=== PATIENT | male | born 1970 | race Caucasian/White ===

== ENCOUNTER 2020-06-25 07:15 | Inpatient (IN) | payer BC ==
[2020-06-26] MEDS ORDERED: cefOXitin 2 GM Vial ONE (06:45)
[2020-06-26] MEDS ORDERED: fentaNYL 250 MCG/5 ML SDV ONE ×2 (07:00→12:21)
[2020-06-26] MEDS ORDERED: Neostigmine Methylsulfate 1 MG/ML 5 ML Syringe ONE (07:01)
[2020-06-26] MEDS ORDERED: Succinylcholine 200 MG/10 ML MDV ONE (07:01)
[2020-06-26] MEDS ORDERED: Glycopyrrolate 0.2 MG/ML 5 ML MDV ONE (07:01)
[2020-06-26] MEDS ORDERED: Dexamethasone 4 MG/ML SDV ONE (07:01)
[2020-06-26] MEDS ORDERED: Rocuronium 50 MG/5 ML Vial ONE (07:01)
[2020-06-26] MEDS ORDERED: Ondansetron 4 MG/2 ML SDV ONE (07:01)
[2020-06-26] MEDS ORDERED: Propofol 200 MG/20 ML SDV ONE (07:01)
[2020-06-26] MEDS ORDERED: Lactated Ringers 1,000 ML ONE (07:03)
[2020-06-26] MEDS ORDERED: Scopolamine 1.5 MG Transdermal Patch TOP ONE (07:45)
[2020-06-26] MEDS ORDERED: Acetaminophen 500 MG Tab PO ONE (07:45)
[2020-06-26] MEDS ORDERED: Celecoxib 200 MG Cap PO ONE (07:45)
[2020-06-26] MEDS ORDERED: Dextrose 5%-Lactated Ringers 1,000 ML IV SCH ×2 (08:00→13:45)
[2020-06-26 08:03] LABS: HEMOGLOBIN A1C 6.3 % (4.5-6.2)
[2020-06-26] MEDS ORDERED: Ketamine 500 MG/5 ML MDV IV SCH (09:15)
[2020-06-26] MEDS ORDERED: Ketamine 50 MG in Sodium Chloride 0.9% 49.5 ML IV SCH (09:15)
[2020-06-26] MEDS ORDERED: cefOXitin 2 GM in Sodium Chloride 0.9% 50 ML IV ONE (09:30)
[2020-06-26] MEDS ORDERED: Magnesium Sulfate 7 GM in Sodium Chloride 0.9% 250 ML IV ONE (09:45)
[2020-06-26] MEDS ORDERED: hydrOXYzine HCL 100 MG/2 ML SDV IM ONE ×2 (13:19→13:41)
[2020-06-26] MEDS ORDERED: Cyclobenzaprine 10 MG Tab PO PRN (13:45)
[2020-06-26] MEDS ORDERED: fentaNYL 100 MCG/2 ML SDV IVPUSH ONE (13:46)
[2020-06-26] MEDS ORDERED: hydrOXYzine HCL 100 MG/2 ML SDV IM PRN (14:00)
[2020-06-26] MEDS ORDERED: Calcium Gluconate 10% 1 GM/10 ML SDV IVPUSH PRN (14:00)
[2020-06-26] MEDS ORDERED: diphenhydrAMINE 50 MG/ML SDV IVPUSH PRN (14:00)
[2020-06-26] MEDS ORDERED: Metoclopramide 10 MG/2 ML SDV IVPUSH PRN (14:00)
[2020-06-26] MEDS ORDERED: oxyCODONE 5 MG Tab PO PRN (14:00)
[2020-06-26] MEDS ORDERED: Glucagon,Human Recombinant 1 MG Vial IM PRN (14:00)
[2020-06-26] MEDS ORDERED: Labetalol 20 MG/4 ML Syringe IVPUSH PRN (14:00)
[2020-06-26] MEDS ORDERED: Insulin Lispro 100 Unit/ML 3 ML KwikPen SUBCUT PRN (14:00)
[2020-06-26] MEDS ORDERED: 50% Dextrose in Water 50 ML Syringe IVPUSH PRN (14:00)
[2020-06-26] MEDS ORDERED: Ondansetron 4 MG/2 ML SDV IVPUSH PRN (14:00)
[2020-06-26] MEDS ORDERED: HYDROmorphone 0.5 MG/0.5 ML Syringe IVPUSH PRN (14:00)
[2020-06-26] MEDS ORDERED: Acetaminophen 500 MG Tab PO PRN (14:00)
[2020-06-26] MEDS: Lactated Ringers 1,000 ML IV SCH (14:52)
[2020-06-26] MEDS: HYDROmorphone 1 MG/ML Syringe IV PRN ×2 (14:58→22:49)
[2020-06-26] MEDS: Allopurinol 100 MG Tab PO SCH (16:25)
[2020-06-26] MEDS ORDERED: Phenol/Sodium Phenolate Spray 180 ML Bottle MUCMEM PRN (16:44)
[2020-06-26] MEDS: Pantoprazole 40 MG Vial IVPUSH SCH (16:48)
[2020-06-26] MEDS: MVI, Adult with Vitamin K 10 ML, Thiamine 200 MG, Zinc/Copper/Manganese/Selenium 1 ML i... IV SCH ×4 (16:53)
[2020-06-26] MEDS: Acetaminophen 500 MG Tab PO SCH (16:57)
[2020-06-26] MEDS: cefOXitin 2 GM in Sodium Chloride 0.9% 50 ML IV SCH ×2 (16:58→22:37)
[2020-06-26] MEDS: DULoxetine 30 MG Cap PO SCH (20:19)
[2020-06-26] MEDS: Heparin Sodium 5,000 Units/ML Vial SUBCUT SCH (20:19)
[2020-06-27] MEDS: Acetaminophen 500 MG Tab PO SCH ×4 (00:14→23:16)
[2020-06-27] MEDS: cefOXitin 2 GM in Sodium Chloride 0.9% 50 ML IV SCH ×3 (04:33→16:11)
[2020-06-27] MEDS: Lactated Ringers 1,000 ML IV SCH (04:36)
[2020-06-27] MEDS: HYDROmorphone 1 MG/ML Syringe IV PRN (04:42)
[2020-06-27] MEDS ORDERED: Ondansetron 4 MG Tab.DIS PO PRN (07:22)
[2020-06-27] MEDS ORDERED: hydrOXYzine HCl 25 MG Tab PO PRN (07:23)
[2020-06-27] MEDS ORDERED: Lactated Ringers 1,000 ML IV SCH (07:30)
[2020-06-27] MEDS: SCOPOLAMINE PATCH CHECK TOP SCH (08:22)
[2020-06-27] MEDS: Heparin Sodium 5,000 Units/ML Vial SUBCUT SCH ×2 (08:22→20:08)
[2020-06-27] MEDS: DULoxetine 30 MG Cap PO SCH ×2 (08:22→20:09)
[2020-06-27] MEDS: Hydrochlorothiazide 12.5 MG Cap PO SCH (08:22)
[2020-06-27] MEDS: Celecoxib 200 MG Cap PO SCH ×2 (08:22→20:08)
[2020-06-27] MEDS: Lisinopril 10 MG Tab PO SCH (08:23)
[2020-06-27] MEDS: Allopurinol 100 MG Tab PO SCH (08:23)
--- NOTE | 2020-06-27 09:40 | PN ---
DATE OF SERVICE: 06/27/2020 SUBJECTIVE: Louis is postoperative day #1. He was unable to have an upper GI x-ray this morning due to anaphylactic allergy when he had an x-ray prior to this. Vital signs have been stable. He has been up ambulating. Step 1 gastric bypass diet. He had 1600 in and 2900 out of a clear yellow urine. MARQUISE drain put out 110 mL of a light red drainage. Vital signs stable. Pain is controlled. REVIEW OF SYSTEMS: Remainder of review of systems negative for any pertinent positives and negatives. OBJECTIVE: GENERAL: Louis Cha is a pleasant 50-year-old male. He is alert, orientated, lying in bed. VITAL SIGNS: TPR is 98.7, 68, 16, blood pressure 123/63. HEENT: Negative. NECK: Supple. HEART: Regular rate and rhythm. LUNGS: Clear. ABDOMEN: Dressings dry and intact. Abdominal binder is on. MARQUISE drain as above. EXTREMITIES: SCDs are on and there is no peripheral edema. ASSESSMENT: Diagnostic laparoscopy with: 1. Laparoscopic Enzo-en-Y gastric bypass surgery. 2. Liver biopsy. 3. Repair of diaphragmatic hernia. 4. Excision of mediastinal lipoma. 5. Excision of peritoneal cyst over mid jejunojejunostomy. 6. Partial gastrectomy. POSTOPERATIVE DIAGNOSES: 1. Morbid obesity. 2. Hepatomegaly. 3. Diaphragmatic hernia. 4. Mediastinal lipoma. 5. Peritoneal cyst 1 cm over medial jejunojejunostomy. 6. Devascularization of the stomach after formation of gastric pouch. 7. Date of procedure: 06/26/2020. 8. Surgeon: Aram Chapa MD. PLAN: 1. May shower. 2. Step 2 gastric bypass diet without cereal. 3. Atarax 25 mg p.o. q.4 hours p.r.n. pain. 4. Lactated Ringer's 100 mL per hour. 5. Zofran ODT 4 mg every 4 hours p.r.n. nausea. 6. Discontinue D5 LR. 7. Discontinue IV Dilaudid. 8. Discontinue oxycodone. 9. Discontinue cardiac monitoring and pulse oximetry. 10.Continue to use incentive spirometer and ambulation. 11.Communication order written for 3 med cups, 1 every 20 minutes, 3 per hour and to record at bedside. 12.We will evaluate p.r.n. or in a.mJoel Hernandez PA-C /[id number]
[2020-06-27] MEDS: Pantoprazole 40 MG Vial IVPUSH SCH (15:21)
[2020-06-27] MEDS: MVI, Adult with Vitamin K 10 ML, Thiamine 200 MG, Zinc/Copper/Manganese/Selenium 1 ML i... IV SCH ×4 (16:11)
[2020-06-28] MEDS: Celecoxib 200 MG Cap PO SCH (08:06)
[2020-06-28] MEDS: Lisinopril 10 MG Tab PO SCH (08:06)
[2020-06-28] MEDS: Acetaminophen 500 MG Tab PO SCH (08:06)
[2020-06-28] MEDS: Allopurinol 100 MG Tab PO SCH (08:06)
[2020-06-28] MEDS: DULoxetine 30 MG Cap PO SCH (08:06)
[2020-06-28] MEDS: Hydrochlorothiazide 12.5 MG Cap PO SCH (08:06)
[2020-06-28] MEDS: Heparin Sodium 5,000 Units/ML Vial SUBCUT SCH (08:06)
[2020-06-28] MEDS: SCOPOLAMINE PATCH CHECK TOP SCH (08:07)
[2020-06-28] MEDS ORDERED: Cyanocobalamin (Vitamin B12) 1,000 MCG/ML SDV IM ONE (09:00)
--- NOTE | 2020-06-28 11:02 | DISCH ---
ADMISSION DIAGNOSES: 1. Morbid obesity. 2. BMI 44.5. 3. Anxiety. 4. Adjustment disorder. 5. Type 2 diabetes. 6. Benign essential hypertension. 7. Lipoprotein metabolism disorders. 8. Obstructive sleep apnea. DISCHARGE DIAGNOSES: Diagnostic laparoscopy with: 1. Laparoscopic Enzo-en-Y gastric bypass surgery. 2. Liver biopsy. 3. Repair of diaphragmatic hernia. 4. Excision of mediastinal lipoma. 5. Excision of peritoneal cyst over mid jejunojejunostomy. 6. Partial gastrectomy. POSTOPERATIVE DIAGNOSES: 1. Morbid obesity. 2. Hepatomegaly. 3. Diaphragmatic hernia. 4. Mediastinal lipoma. 5. Peritoneal cyst 1 cm over medial jejunostomy. 6. Devascularization of the stomach after formation of gastric pouch. Date of procedure, 06/26/2020. Surgeon: Aram Chapa MD. HISTORY: Louis Cha is a 50-year-old male with longstanding history of morbid obesity and increasing comorbidities. After preoperative evaluation and discussion of possible risks and possible complications, he wished to proceed with surgical procedure. HOSPITAL COURSE: Louis had his surgery on 06/26/2020. He had no operative complications. Unable to do an upper GI due to allergy to the contrast. He was started on step 2 gastric bypass diet without cereal. He received dietary instruction. On postoperative day 2, his activity was good, vital signs stable. Oral intake 1490 in the previous 24 hours. Urine output 430. MARQUISE drain had put out 25 mL of a light pink drainage. He received a B12 1000 mcg IM injection, discharge and end dietary instructions, and he will be able to be discharged to home in good condition. PHYSICAL EXAMINATION: GENERAL: Louis Cha is a pleasant 50-year-old male, height 6 feet, weight 328 pounds, BMI 44.5. VITAL SIGNS: TPR is 96.3, 73, 16, blood pressure 166/69. HEENT: Negative. NECK: Supple. HEART: Regular rate and rhythm. LUNGS: Clear. ABDOMEN: Sutures intact. Incisions healing well. MARQUISE drain will be removed prior to discharge. Abdominal binder has been on. EXTREMITIES: Without disposition. DISPOSITION: Discharged to home. CONDITION: Stable and improving. FOLLOWUP: Appointment with Thania Hernandez PA-C, 07/05/2020 at 9:45 a.m. HOME MEDICATIONS: 1. Zofran ODT 4 mg sublingual q.4 hours p.r.n. nausea, #30. 2. Tylenol 1000 mg every 8 hours scheduled. 3. Celebrex 200 mg p.o. b.i.d. 4. Atorvastatin, Lipitor 10 mg p.o. daily. 5. Lisinopril/HCTZ 10/12.5 mg 1 tablet daily. 6. Cymbalta 60 mg daily. 7. Cymbalta 30 mg a.c. dinner. 8. Zyloprim 100 mg p.o. daily. DIET: Step 2 gastric bypass diet with no cereal for 2 weeks until 07/11/2020. ACTIVITY: No lifting greater than 10 pounds for 2 weeks. Other activity: Walk at least 6 times daily inside your home. Driving: Do not drive for 1 week. Shower/bathing: May shower. Keep operative site clean and dry. Wear abdominal binder for 2 weeks and then as tolerated. Notify provider if any fever, increased pain, nausea, vomiting. SPECIAL INSTRUCTIONS: 1. Use incentive spirometer 10 times every hour while awake for 1 week. 2. Walk every hour while in the car to avoid blood clots. /[id number]
--- NOTE | 2020-07-09 08:38 | OR ---
DATE OF PROCEDURE: 06/26/2020 SURGEON: Aram Chapa MD PREOPERATIVE DIAGNOSIS: Morbid obesity. POSTOPERATIVE DIAGNOSES: 1. Morbid obesity. 2. Marked hepatomegaly. 3. Mediastinal lipoma. 4. Peritoneal cyst over mid jejunum. 5. Area of devascularization of stomach following formation of gastric pouch. OPERATIVE PROCEDURES: Diagnostic laparoscopy with: 1. Laparoscopic Enzo-en-Y gastric bypass with long limb gastroenterostomy (71794). 2. Christian-Cut needle liver biopsy (42544). 3. Repair of paraesophageal diaphragmatic hernia (07213). 4. Excision of mediastinal lipoma (01919). 5. Excision of peritoneal cyst over mid jejunum (38699). 6. Partial gastrectomy (92412). ANESTHESIA: General. INDICATIONS FOR PROCEDURE: This is a 50-year-old male presenting with longstanding morbid obesity and increasingly significant comorbidities. After preoperative evaluation and discussion, he wished to proceed with a gastric bypass procedure. Potential risks of the procedure including bleeding, infection, leaks from various GI tract closures, problems with bowel obstruction over time as well as possibility of cardiopulmonary, septic, or hemorrhagic complications leading to were discussed, and the patient wishes to proceed. DETAILS OF PROCEDURE: The patient was taken to the operating room and placed in a lithotomy position after general endotracheal anesthetic was induced, and the abdomen then prepped and draped. 15 cm inferior and 5 cm left of the xiphoid process, transverse incision was made, and peritoneal cavity entered under direct vision with an Optiview trocar, inflated to 15 mmHg of CO2. Laparoscope was then reinserted. No underlying trocar insertion site injuries were seen. Following this, bilateral transversus abdominis plane blocks were placed and 5 additional trocars were placed across the upper and mid abdomen. The patient's liver was noted to be markedly enlarged and fatty infiltrated. Christian-Cut needle biopsy obtained from left lobe of liver. Minimal bleeding from the biopsy sites was controlled with electrocautery. At this point, the omentum was divided in midline up to the level of the transverse colon. This allowed identification of the small bowel to the ligament of Treitz. Small bowel was then traced out 150 cm distal to that point, where it was divided with a JORGE stapler. Just proximal to the division point, a roughly 1 cm peritoneal cyst was located over the Enzo limb more or less at junction of the bowel wall and mesentery. This was excised and sent for histologic evaluation. Small bowel was then traced out additional 150 cm where the side- to-side enteroenterostomy was accomplished with an internal firing of the Endo-JORGE 60 mm stapler, common opening was then closed transversely with the same stapler and angles anastomosed and mesenteric defect approximated with some 0 Ethibond stitches along with 4 mL of fibrin sealant. Divided end of Enzo limb was then from the mesentery for a few centimeters, which allowed antecolic positioning of the Enzo limb up to the level of the gastroesophageal junction without tension. The liver was then retracted anteriorly. The patient was noted to have a moderate-sized paraesophageal diaphragmatic hernia containing perigastric fat and some gastric fundus and some omentum. This was reduced and the peritoneum overlying incised and reflected downward. During the course of dissection, mediastinal lipoma was encountered to facilitate a more satisfactory closure. This was excised and the crura was then closed anteriorly with 0 Ethibond sutures reinforced with PTFE pledgets. The gastrointestinal catheter was then inflated 15 mL and pulled up snugly against EG junction. Gastric wall over the apex balloon was then marked with electrocautery and balloon catheter deflated and pulled up from the esophagus. The lesser omental tissue adjacent to the gastric cardia was then incised allowing dissection behind the stomach at that level. Pouch formation was initiated with transverse firing of the JORGE stapler at the level of the cauterized con in the gastric cardia and completed with some additional JORGE stapler firings up to and through the angle of His. Upon completion of the pouch, portion of the bypassed stomach was noted to be quite ischemic and this was excised with additional JORGE firing and sent for histologic evaluation. The anvil of a 25 mm EEA stapler was then attached to [place] sump type tube, the latter was brought down through the mouth, taken out a small opening in the gastric pouch, allowing the anvil likewise to be placed into the gastric pouch. Divided end of the Enzo limb was then opened and main body of EEA stapler passed several centimeters in the lumen of the small bowel, brought up the anvil, united with it thus creating the gastrojejunostomy. Upon removal of stapler, double donuts of mucosa were noted within it. Small bowel was closed off with a vascular staple line. Gastrojejunostomy was reinforced with some 3-0 Vicryl seromuscular stitch along with fibrin sealant. A leak test was accomplished with injection of 120 mL of air in the gastric pouch while it was submerged with cefoxitin-containing saline solution. No leaks were identified. A single Hector-Moore drain was taken out through the left lateral trocar site and positioned adjacent to gastrojejunostomy, from there up into the splenic fossa. Trocars were then sequentially removed and the peritoneal cavity deflated. Incisions were closed with some 4-0 Vicryl skin stitch. Drains fixed with some 4-0 Vicryl stitch as well, and the patient was taken to the recovery room in satisfactory condition. There were no other complications. Physician political science research assistant, Thania Hernandez, played an essential role in assisting in this case helping to position the patient, retract structures as needed, as well as suturing and cutting sutures when indicated. Her presence improved patient safety and decreased operative time. Aram Chapa MD /[id number]
== END 2020-06-28 10:00 | disposition home or self-care (01) | DRG 403 ==
LOC: JP.SDSSCHI 06-26 07:18 → JP.SDS 06-26 07:18 → EDSTATUS 06-26 11:15 → JP.MS 06-26 13:20
PROVIDERS: ADMIT Surgery; ATTEND Surgery
PROC: 0D164ZA Bypass Stomach to Jejunum, Percutaneous Endoscopic Approach (ICD-10-PCS; principal; 2020-06-26)
PROC: 0FB24ZX Excision of Left Lobe Liver, Percutaneous Endoscopic Approach, Diagnostic (ICD-10-PCS; 2020-06-26)
PROC: 0BQT4ZZ Repair Diaphragm, Percutaneous Endoscopic Approach (ICD-10-PCS; 2020-06-26)
PROC: 0JB63ZZ Excision of Chest Subcutaneous Tissue and Fascia, Percutaneous Approach (ICD-10-PCS; 2020-06-26)
PROC: 0DBW4ZZ Excision of Peritoneum, Percutaneous Endoscopic Approach (ICD-10-PCS; 2020-06-26)
PROC: 0DB64ZZ Excision of Stomach, Percutaneous Endoscopic Approach (ICD-10-PCS; 2020-06-26)
DX: E66.01 Morbid (severe) obesity due to excess calories (principal); Z68.41 Body mass index [BMI] 40.0-44.9, adult; F41.9 Anxiety disorder, unspecified; R16.0 Hepatomegaly, not elsewhere classified; K44.9 Diaphragmatic hernia without obstruction or gangrene; D17.1 Benign lipomatous neoplasm of skin and subcutaneous tissue of trunk; K66.8 Other specified disorders of peritoneum; F43.20 Adjustment disorder, unspecified; G47.33 Obstructive sleep apnea (adult) (pediatric); I10 Essential (primary) hypertension; E78.9 Disorder of lipoprotein metabolism, unspecified; F33.9 Major depressive disorder, recurrent, unspecified; E78.5 Hyperlipidemia, unspecified; M10.072 Idiopathic gout, left ankle and foot; Z79.84 Long term (current) use of oral hypoglycemic drugs; Z79.899 Other long term (current) drug therapy
CPT/HCPCS: 36415; 82962; 83036; 86850; 86900; 86901; 88304; 88305; 88307; 88313; A9270-GY; C9113; J0171; J0330; J0694; J1100; J1170; J1644; J1815; J1815-GY; J2405; J2704; J2710; J2795; J3010; J3410; J3411; J3420; J3475; J3490; J7050; J7120; J7121